=== PATIENT | male | born 1995 | race Caucasian/White ===

== ENCOUNTER → 2024-03-30 | Outpatient (CLI) | payer OTHER ==
--- NOTE | 2024-04-06 22:01 | MR ---
EXAMINATION TYPE: MR knee LT wo con DATE OF EXAM: 03/30/2024 COMPARISON: NONE HISTORY: Left knee medial pain with locking and swelling since 2019 TECHNIQUE: Multiplanar, multisequence images of the knee is performed without IV contrast. FINDINGS: MEDIAL MENISCUS: Linear signal posterior horn extends to articular surface consistent with tear. LATERAL MENISCUS: Anterior and posterior horns are intact without tear. CRUCIATE LIGAMENTS: The anterior and posterior cruciate ligaments are intact and unremarkable. COLLATERAL LIGAMENTS: The medial collateral ligament and lateral collateral ligament complex are inta ct and unremarkable. EXTENSOR MECHANISM: Visualized quadriceps tendon is intact. Inferior patellar pole as focal diminishe d T1 and increased T2 signal extending to proximal patellar tendon deeper fibers and superior aspect of Hoffa's fat pad. Bony fragmentation is noted confirmed on outside x-ray. EFFUSION: No significant suprapatellar joint effusion. POPLITEAL CYST: No popliteal/singletary cyst. TRICOMPARTMENT SPACES: Mild to moderate patellofemoral compartment narrowing CARTILAGE: Tricompartment articular cartilage is preserved. BONE MARROW SIGNAL: No additional focal abnormal marrow signal is appreciated. OTHER: Prominent superficial vessels likely reflecting varicose veins. IMPRESSION: 1. 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 2. Full-thickness tear posterior horn medial meniscus.
== END | disposition home or self-care (01) ==
LOC: RADMRIMAIN 14:42
PROVIDERS: ATTEND Orthopaedic Surgery
DX: S82.092A Other fracture of left patella, initial encounter for closed fracture (principal); S83.242A Other tear of medial meniscus, current injury, left knee, initial encounter